=== PATIENT | female | born 2000 | race Caucasian/White ===

== ENCOUNTER 2020-09-18 06:19 | Emergency (ER) | payer BC ==
[~2020-09-18] VITALS: Ht 170.2 cm; Wt 65.0 kg
[2020-09-18] MEDS ORDERED: ONDANSETRON 2MG/ML, 2ML ONE (06:38)
[2020-09-18] MEDS ORDERED: ONDANSETRON 2MG/ML, 2ML IVPush ONE (07:00)
[2020-09-18] MEDS ORDERED: SODIUM CHLORIDE FLUSH 10ML SYR IVF ONE (07:00)
[2020-09-18] MEDS ORDERED: PLEASE ENTER ALLERGIES MC SCH (07:00)
[2020-09-18] MEDS ORDERED: SODIUM CHLORIDE 0.9% 1,000ML IVBOLUS ONE (07:00)
[2020-09-18] MEDS ORDERED: SODIUM CHLORIDE 0.9% 1,000 ML IV ONE (07:00)
--- NOTE | 2020-09-18 07:04 | NUR ---
ASSUMED CARE OF PT. REPORT RECEIVED FROM LANDON PORTILLO.
--- NOTE | 2020-09-18 07:06 | NUR ---
pt here for n/v since 0145 last night. pt states no history other than anxiety. pt is a daily marijuana user as well. pt steady ambulating, provided urine sample, piv inserted, labs drawn, medicated per emar. report given to vida daley
[2020-09-18 07:11] LABS: BASOPHILS % (AUTO) 1 % (0-1); EOSINOPHILS % (AUTO) 0 % (1-7); LYMPHOCYTES % (AUTO) 9 % (22-44); MEAN CORPUSCULAR HEMOGLOBIN 28.5 pg (27.0-34.8); MEAN CORPUSCULAR HGB CONC 33.7 g/dL (32.4-35.8); MEAN PLATELET VOLUME 9.3 fL (7.4-10.4); MONOCYTES % (AUTO) 3 % (2-9); NEUTROPHILS % (AUTO) 87 % (42-75); PLATELET COUNT 395 x10^3/uL (130-400); RED BLOOD COUNT 5.05 x10^6/uL (3.82-5.3); RED CELL DISTRIBUTION WIDTH 13.9 % (9.6-15.2)
[2020-09-18 07:13] LABS: MD NO
[2020-09-18 07:18] LABS: ALANINE AMINOTRANSFERASE 27 U/L (12-78); ALBUMIN 5.1 g/dL (3.4-5.0); ANION GAP 13 mmol/L (5-15); CALCIUM 10.1 mg/dL (8.5-10.1); CHLORIDE 104 mmol/L (98-107); CREATININE 1.07 mg/dL (0.55-1.02)
[2020-09-18 07:23] LABS: ALKALINE PHOSPHATASE 50 U/L (45-117); BILIRUBIN,TOTAL 0.6 mg/dL (0.2-1.0); TOTAL PROTEIN 9.4 g/dL (6.4-8.2)
[2020-09-18 07:28] LABS: MICROSCOPIC INDICATED
[2020-09-18] MEDS ORDERED: PROMETHAZINE 25 MG/ML, 1ML ONE (07:50)
--- NOTE | 2020-09-18 07:55 | NUR ---
PT RESTING ON GURNEY. STATES GENERALIZED "GROSSNESS, LIKE I FEEL GROSS ALL OVER". NAUSEA MEDICATION ADMINISTERED PER ORDER. VSS. NAD. CALL LIGHT W/IN REACH. WILL CONTINUE TO MONITOR
[2020-09-18] MEDS ORDERED: PROMETHAZINE 25 MG/ML, 1ML IM ONE (08:00)
[2020-09-18 08:56] VITALS: BP 103/78
--- NOTE | 2020-09-18 08:58 | NUR ---
PT AMBULATED TO DISCHARGE W/STEADY GAIT. PT ENCOURAGED TO FOLLOWUP DISCUSSED. PT EDUCATED TO RETURN TO THE ED W/WORSENING SYMPTOMS. RX GIVEN
== END 2020-09-18 09:00 | disposition home or self-care (01) ==
LOC: ED 08:54
DX: R11.2 Nausea with vomiting, unspecified (principal); E86.0 Dehydration
CPT/HCPCS: 36415; 80053; 81001; 83690; 84703; 85025; 96361; 96372; 96374; 99284; J2405; J2550; J7030